=== PATIENT | female | born 1995 | race Caucasian/White ===

== ENCOUNTER 2020-08-10 10:42 | Inpatient (IN) | payer BC ==
[2020-08-12] MEDS ORDERED: Misoprostol 400 MCG (4 X 100 MCG TAB) RECTAL PRN (00:19)
[2020-08-12] MEDS ORDERED: Sodium Chloride 0.9% 10 ML Syringe FLUSH PRN (00:19)
[2020-08-12] MEDS ORDERED: Ondansetron 4 MG/2 ML SDV IVPUSH PRN (00:19)
[2020-08-12] MEDS ORDERED: fentaNYL 100 MCG/2 ML SDV IVPUSH PRN (00:19)
[2020-08-12] MEDS ORDERED: Butorphanol 2 MG/ML SDV IVPUSH PRN ×2 (00:19)
[2020-08-12] MEDS ORDERED: Lactated Ringers 1,000 ML IV ONE (00:19)
[2020-08-12] MEDS ORDERED: Carboprost Tromethamine 250 MCG/1 ML Amp IM PRN (00:19)
[2020-08-12] MEDS ORDERED: Tranexamic Acid 1,000 MG in Sodium Chloride 0.9% 100 ML IV PRN (00:19)
[2020-08-12] MEDS ORDERED: Lidocaine 1% 30 ML SDV INJECT PRN (00:19)
[2020-08-12] MEDS ORDERED: Methylergonovine 0.2 MG/1 ML Amp IM PRN (00:19)
--- NOTE | 2020-08-12 00:27 | PCM.LDHP ---
L&D History of Present Illness - General Date of Service: 08/12/20 Admit Problem/Dx: Patient Status Order with Admit Dx/Problem 08/12/20 00:20 Patient Status [ADT] Routine Admission Diagnosis/Problem Admission Diagnosis/Problem care Source of Information: Patient History Limitations: Reports: No Limitations - History of Present Illness Introduction:: 25-year-old at 40w2d presents to L&D for IOL secondary to postdates and residing >1 hour away from the hospital. Patient has been feeling well. Rare Tommie-Aviles contraction. Baby has been active. No vaginal bleeding or leaking of fluid. No new headache or vision changes. has been uncomplicated. - Related Data Allergies/Adverse Reactions: Allergies Allergy/AdvReac Type Severity Reaction Status Date / Time No Known Allergies Allergy Verified 08/12/20 05:51 Past Medical History - Past Surgical History HEENT Surgical History: Reports: Adenoidectomy, Myringotomy w Tube(s), Tonsillectomy Social & Family History - Family History Endocrine/Metabolic: Reports: Diabetes, type II (Mother) Oncologic: Reports: Cervix (Mother) - Living Situation & Occupation Living situation: Reports: Occupation: Employed H&P Review of Systems - Review of Systems: Review Of Systems: See Below General: Reports: No Symptoms HEENT: Reports: No Symptoms Pulmonary: Reports: No Symptoms Cardiovascular: Reports: No Symptoms Gastrointestinal: Reports: No Symptoms Genitourinary: Reports: No Symptoms Musculoskeletal: Reports: No Symptoms L&D Exam - Exam Exam: See Below - OB Specific Contraction Intensity: Irritability Movement: Active Heart Tones: Present Heart Tones per Min: 135 Heart Rate (FHR) Variability: Moderate (6-25 bmp) Presentation: Vertex - Whitten Score Whitten Score Cervix Position: Posterior Whitten Score Consistency: Soft Whitten Score Effacement: 51-70% Whitten Score Dilation: 1-2 cm Whitten Score 's Station: -2 Whitten Score Total: 6 - Exam General: Alert, Oriented HEENT: Conjunctiva Clear, Mucosa Moist & Bressler, Posterior Pharynx Clear Lungs: Clear to Auscultation, Normal Respiratory Effort Cardiovascular: Regular Rate, Regular Rhythm Genitourinary: Normal external exam Back Exam: Normal Inspection Extremities: Non-Tender, No Pedal Edema Skin: Warm, Dry, Intact - Patient Data Result Diagrams: 08/12/20 00:34 - Problem List (1) care in third trimester SNOMED Code(s): 795134384, 40326102, 38320756, 766056520, 294453855 ICD Code: Z34.93 - ENCNTR FOR SUPRVSN OF NORMAL PREG, UNSP, THIRD TRIMESTER Status: Acute Current Visit: Yes (2) Anemia affecting in third trimester SNOMED Code(s): 42014818, 53866011 ICD Code: O99.013 - ANEMIA COMPLICATING , THIRD TRIMESTER Status: Acute Current Visit: Yes Problem List Initiated/Reviewed/Updated: Yes Orders Last 24hrs: Active Orders 24 hr Category Date Time Status Patient Status [ADT] Routine ADT 08/12/20 00:20 Ordered Communication Order [RC] ASDIRECTED Care 08/12/20 00:20 Ordered Communication Order [RC] ASDIRECTED Care 08/12/20 00:24 Ordered Communication Order [RC] ASDIRECTED Care 08/12/20 00:24 Ordered Communication Order [RC] ASDIRECTED Care 08/12/20 00:24 Ordered Communication Order [RC] ASDIRECTED Care 08/12/20 00:24 Ordered Heart Tones [RC] PER UNIT ROUTINE Care 08/12/20 00:20 Ordered Monitoring [RC] PER UNIT ROUTINE Care 08/12/20 00:24 Ordered Nitrous Oxide Delivery [RC] ASDIRECTED Care 08/12/20 00:23 Ordered Notify Provider Vital Signs OB [RC] ASDIRECTED Care 08/12/20 00:20 Ordered Notify Provider [RC] PRN Care 08/12/20 00:20 Ordered Notify Provider [RC] PRN Care 08/12/20 00:24 Ordered Notify Provider [RC] PRN Care 08/12/20 00:24 Ordered Notify Provider [RC] STAT Care 08/12/20 00:24 Ordered OB Discontinue Nitrous Oxide [RC] ASDIRECTED Care 08/12/20 00:23 Ordered Pump Management, Intrathecal [RC] ASDIRECTED Care 08/12/20 00:19 Ordered Up ad Fani [RC] ASDIRECTED Care 08/12/20 00:20 Ordered Vaginal Exam [RC] PRN Care 08/12/20 00:24 Ordered Vital Signs [RC] PER UNIT ROUTINE Care 08/12/20 00:20 Ordered Regular Diet [DIET] Diet 08/12/20 Breakfast Ordered CBC W/O DIFF,HEMOGRAM [HEME] Routine Lab 08/12/20 00:20 Ordered CORONAVIRUS COVID-19 SARAH [MOLEC] Stat Lab 08/12/20 00:20 Ordered Acetaminophen [TylenoL] Med 08/12/20 00:19 Ordered 650 mg PO Q4H PRN Butorphanol [Stadol] Med 08/12/20 00:19 Ordered 0.5 mg IVPUSH Q3H PRN Butorphanol [Stadol] Med 08/12/20 00:19 Ordered 1 mg IVPUSH Q3H PRN Carboprost Tromethamine [Hemabate DS] Med 08/12/20 00:19 Ordered 250 mcg IM ASDIRECTED PRN Lactated Ringers @ 125 MLS/HR(1000ml) Med 08/12/20 00:30 Ordered Lactated Ringers [Ringers, Lactated] 1,000 ml IV ASDIRECTED Lactated Ringers [Ringers, Lactated] 1,000 ml Med 08/12/20 00:19 Ordered IV BOLUS Lidocaine 1% [Xylocaine-MPF 1%] Med 08/12/20 00:19 Ordered 30 ml INJECT ASDIRECTED PRN Methylergonovine [Methergine] Med 08/12/20 00:19 Ordered 0.2 mg IM ASDIRECTED PRN Ondansetron [Zofran] Med 08/12/20 00:19 Ordered 4 mg IVPUSH Q4H PRN Oxytocin 30 Units in NS @ 2 MUNITS/MIN(500ml) Med 08/12/20 00:30 Ordered Oxytocin/Normal Saline [Pitocin in NS 30 UNIT/500 ML] 30 unit in 500 ml IV TITRATE Sodium Chloride 0.9% [Saline Flush] Med 08/12/20 00:19 Ordered 10 ml FLUSH ASDIRECTED PRN Tranexamic Acid [Cyklokapron] 1,000 mg Med 08/12/20 00:19 Ordered Sodium Chloride 0.9% [Normal Saline] 100 ml IV ONETIME fentaNYL [Sublimaze] Med 08/12/20 00:19 Ordered 100 mcg IVPUSH Q1H PRN miSOPROStoL [Cytotec] Med 08/12/20 00:24 Ordered 25 mcg VAG Q4H PRN miSOPROStoL [Cytotec] Med 08/12/20 00:19 Ordered 800 mcg RECTAL ASDIRECTED PRN Saline Lock Insert [OM.PC] Routine Oth 08/12/20 00:20 Ordered Resuscitation Status Routine Resus Stat 08/12/20 00:19 Ordered Medication Orders Acetaminophen (Tylenol) 650 mg PO Q4H PRN PRN Reason: Pain (Mild 1-3) and fever Butorphanol Tartrate (Stadol) 0.5 mg IVPUSH Q3H PRN PRN Reason: Pain Butorphanol Tartrate (Stadol) 1 mg IVPUSH Q3H PRN PRN Reason: Pain Carboprost Tromethamine (Hemabate Ds) 250 mcg IM ASDIRECTED PRN PRN Reason: HEMORRHAGE Fentanyl (Sublimaze) 100 mcg IVPUSH Q1H PRN PRN Reason: Pain (moderate 4-6) Tranexamic Acid 1,000 mg/ (Sodium Chloride) 110 mls @ 660 mls/hr IV ONETIME PRN PRN Reason: Bleeding Lactated Ringer's (Ringers, Lactated) 1,000 mls @ 999 mls/hr IV BOLUS ONE Stop: 08/12/20 01:19 Lactated Ringer's (Ringers, Lactated) 1,000 mls @ 125 mls/hr IV ASDIRECTED COLLEEN Oxytocin/Sodium Chloride (Pitocin In Ns 30 Unit/500 Ml) 30 unit in 500 mls @ 2 mls/hr IV TITRATE COLLEEN; Protocol Lidocaine HCl (Xylocaine-Mpf 1%) 30 ml INJECT ASDIRECTED PRN PRN Reason: Perineal Repair Methylergonovine Maleate (Methergine) 0.2 mg IM ASDIRECTED PRN PRN Reason: Hemorrhage Misoprostol (Cytotec) 800 mcg RECTAL ASDIRECTED PRN PRN Reason: Hemorrhage Misoprostol (Cytotec) 25 mcg VAG Q4H PRN PRN Reason: cervical ripening Ondansetron HCl (Zofran) 4 mg IVPUSH Q4H PRN PRN Reason: Nausea/Vomiting Sodium Chloride (Saline Flush) 10 ml FLUSH ASDIRECTED PRN PRN Reason: Keep Vein Open Assessment/Plan Comment:: 25-year-ol at 40w2d presents to L&D for elective IOL postdates 1. Initiate routine intrapartum orders 2. Cytotec placed vaginally 3. Will reassess in 4 hours and determine further management at that time. 4. Patient does not plan on intrathecal but is open to pain management options 5. Expectant management. Anticipate Dorita oMoney MD
[2020-08-12] MEDS: Misoprostol 25 MCG (1/4 of 100 MCG) Tab VAG PRN ×2 (01:24→05:50)
[2020-08-12] MEDS: Lactated Ringers 1,000 ML IV SCH ×2 (10:52→12:30)
[2020-08-12] MEDS ORDERED: Nalbuphine 10 MG/1 ML Vial IM PRN (11:36)
[2020-08-12] MEDS: Oxytocin/Normal Saline 30 UNIT/500 ML BAG IV SCH ×2 (13:57→16:49)
[2020-08-12] MEDS ORDERED: Benzocaine/Menthol 20%-0.5% Spray 56 GM Canister TOP ONE (14:02)
[2020-08-12] MEDS: Ibuprofen 800 MG Tab PO PRN (14:51)
[2020-08-12] MEDS ORDERED: Benzocaine/Menthol 20%-0.5% Spray 56 GM Canister TOP PRN (15:14)
--- NOTE | 2020-08-12 17:33 | PCM.DEL ---
L & D Note - General Info Date of Service: 08/12/20 Mother's Due Date: 08/10/20 - Delivery Note Labor: Augmented by ARM Cervical Ripening Method: Misoprostil Delivery Outcome: Livebirth Delivery Method: Spontaneous Vaginal Delivery-Single Presentation: Vertex Nuchal Cord: None Anesthesia Type: Local, Nitrous Oxide Anesthetic: Lidocaine (Xylocaine) 1% Plain Local Anesthetic Volume: Other (10) Amniotic Fluid Description: Clear Episiotomy Type: None Laceration: Labial (Left) Suture type: Vicryl Suture size: 4-0 Placenta: Intact, Spontaneous Cord: 3 Vessels Estimated Blood Loss: 400 : Bulb Syringe, Stimulated, Warmed Score 1 min: 8 Score 5 min: 9 Delivery Comments (Free Text/Narrative):: 25-year-old presented to L&D at 0000 for elective IOL at 40w2d. Cervix was noted to be 2/75/-2. She received 2 doses of Cytotec for cervical ripening. At 900, patient was diana every 3-4 minutes and was mildly uncomfortable with contractions. Cervix was assessed and noted to be 3/90/0. AROM was performed for a moderate amount of clear fluid. Patient received a dose of fentanyl around 1130 and used nitrous oxide for pain management. She rapidly progressed to complete dilation at 1315. Patient pushed for 40 minutes and delivered a viable female at 1351 with Apgars of 8 and 9 at 1 and 5 minutes respe ctively. Baby was placed on the patient's abdomen. Cord was clamped x2 and cut by patient's . Cord blood was collected. The placenta delivered 5 minutes later and was noted to be intact. Pitocin was initiated, and the uterus was noted to be firm. A complex left labial laceration with moderate bleeding was noted. This was repaired with 4-0 Vicryl using running sutures. Perineum was assessed and noted to be intact. Bleeding was noted to be appropriate. Patient tolerated the procedure well, and there were no immediate complications. Induction Criteria - Whitten Score Whitten Score Dilation: 1-2 cm Whitten Score Effacement: 60-70% Whitten Score 's Station: -2 Whitten Score Consistency: Soft Whitten Score Cervix Position: Posterior Whitten Score Total: 6 Whitten Score Presenting Part: Reports: Cephalic - Induction Gestational Age >/= 39 wks: Yes Estimated Pelvis: Reports: Adequate Reassuring Monitoring Strip: Yes Absence of Tachy Systole: Yes - General Info Date of Service: 08/12/20 - Patient Data Vitals - Most Recent: Last Vital Signs Temp 37.2 C 08/12/20 16:30 Pulse 93 08/12/20 17:00 Resp 18 08/12/20 07:10 BP 123/72 08/12/20 17:00 Pulse Ox Weight - Most Recent: 74.843 kg Lab Results Last 24 Hours: Laboratory Results - last 24 hr 08/12/20 08/12/20 Range/Units 00:20 00:34 WBC 11.2 H (5.0-10.0) 10^3/uL RBC 3.62 L (4.2-5.4) 10^6/uL Hgb 11.7 L (12.0-16.0) g/dL Hct 34.1 L (37.0-47.0) % MCV 94.2 (80-100) fL MCH 32.3 (27.0-34.0) pg MCHC 34.3 (33.0-35.0) g/dL Plt Count 211 (150-450) 10^3/uL SARS-CoV-2 RNA (SARAH) Negative (NEGATIVE) Med Orders - Current: Current Medications Acetaminophen (Tylenol) 650 mg PO Q4H PRN PRN Reason: Pain (Mild 1-3) and fever Benzocaine/Menthol (Dermoplast Pain Relief Marshall) 1 gm TOP ASDIRECTED PRN PRN Reason: Pain Butorphanol Tartrate (Stadol) 0.5 mg IVPUSH Q3H PRN PRN Reason: Pain Butorphanol Tartrate (Stadol) 1 mg IVPUSH Q3H PRN PRN Reason: Pain Carboprost Tromethamine (Hemabate Ds) 250 mcg IM ASDIRECTED PRN PRN Reason: HEMORRHAGE Fentanyl (Sublimaze) 100 mcg IVPUSH Q1H PRN PRN Reason: Pain (moderate 4-6) Last Admin: 08/12/20 11:36 Dose: 100 mcg Documented by: Tranexamic Acid 1,000 mg/ (Sodium Chloride) 110 mls @ 660 mls/hr IV ONETIME PRN PRN Reason: Bleeding Lactated Ringer's (Ringers, Lactated) 1,000 mls @ 125 mls/hr IV ASDIRECTED COLLEEN Last Admin: 08/12/20 12:30 Dose: 125 mls/hr Documented by: Oxytocin/Sodium Chloride (Pitocin In Ns 30 Unit/500 Ml) 30 unit in 500 mls @ 2 mls/hr IV TITRATE COLLEEN; Protocol Last Admin: 08/12/20 16:49 Dose: 125 munits/min, 125 mls/hr Documented by: Ibuprofen (Motrin) 800 mg PO Q8H PRN PRN Reason: Pain (moderate 4-6) Last Admin: 08/12/20 14:51 Dose: 800 mg Documented by: Lidocaine HCl (Xylocaine-Mpf 1%) 30 ml INJECT ASDIRECTED PRN PRN Reason: Perineal Repair Last Admin: 08/12/20 14:06 Dose: 30 ml Documented by: Methylergonovine Maleate (Methergine) 0.2 mg IM ASDIRECTED PRN PRN Reason: Hemorrhage Misoprostol (Cytotec) 800 mcg RECTAL ASDIRECTED PRN PRN Reason: Hemorrhage Misoprostol (Cytotec) 25 mcg VAG Q4H PRN PRN Reason: cervical ripening Last Admin: 08/12/20 05:50 Dose: 25 mcg Documented by: Nalbuphine HCl (Nubain) 20 mg IM ONETIME PRN PRN Reason: Pain (moderate 4-6) Ondansetron HCl (Zofran) 4 mg IVPUSH Q4H PRN PRN Reason: Nausea/Vomiting Sodium Chloride (Saline Flush) 10 ml FLUSH ASDIRECTED PRN PRN Reason: Keep Vein Open Discontinued Medications Benzocaine/Menthol (Dermoplast Pain Relief Marshall) Confirm Administered Dose 56 gm TOP .STK-MED ONE Stop: 08/12/20 14:03 Lactated Ringer's (Ringers, Lactated) 1,000 mls @ 999 mls/hr IV BOLUS ONE Stop: 08/12/20 01:19 - Problem List & Annotations (1) care in third trimester SNOMED Code(s): 978713716, 46103153, 33853736, 095161379, 635653521 Code(s): Z34.93 - ENCNTR FOR SUPRVSN OF NORMAL PREG, UNSP, THIRD TRIMESTER Status: Acute Current Visit: Yes (2) Anemia affecting in third trimester SNOMED Code(s): 12083808, 01256784 Code(s): O99.013 - ANEMIA COMPLICATING , THIRD TRIMESTER Status: Acute Current Visit: Yes (3) (normal spontaneous vaginal delivery) SNOMED Code(s): 81295121, 901493605 Code(s): O80 - ENCOUNTER FOR FULL-TERM UNCOMPLICATED DELIVERY Status: Acute Current Visit: Yes (4) Obstetric labial laceration, delivered, current hospitalization SNOMED Code(s): 128448161, 029717712, 523382728 Code(s): O70.0 - FIRST DEGREE PERINEAL LACERATION DURING DELIVERY Status: Acute Current Visit: Yes Annotation/Comment:: Bilateral--left requiring repair, right hemostatic and no repair needed - Problem List Review Problem List Initiated/Reviewed/Updated: Yes - My Orders Last 24 Hours: My Active Orders 08/12/20 00:19 Acetaminophen [TylenoL] 650 mg PO Q4H PRN Butorphanol [Stadol] 0.5 mg IVPUSH Q3H PRN Butorphanol [Stadol] 1 mg IVPUSH Q3H PRN Carboprost Tromethamine [Hemabate DS] 250 mcg IM ASDIRECTED PRN Lidocaine 1% [Xylocaine-MPF 1%] 30 ml INJECT ASDIRECTED PRN Methylergonovine [Methergine] 0.2 mg IM ASDIRECTED PRN Ondansetron [Zofran] 4 mg IVPUSH Q4H PRN Sodium Chloride 0.9% [Saline Flush] 10 ml FLUSH ASDIRECTED PRN Tranexamic Acid [Cyklokapron] 1,000 mg Sodium Chloride 0.9% [Normal Saline] 100 ml IV ONETIME fentaNYL [Sublimaze] 100 mcg IVPUSH Q1H PRN miSOPROStoL [Cytotec] 800 mcg RECTAL ASDIRECTED PRN Resuscitation Status Routine 08/12/20 00:20 Patient Status [ADT] Routine Notify Provider Vital Signs OB [RC] ASDIRECTED Up ad Fani [RC] ASDIRECTED Vital Signs [RC] 08,20 Saline Lock Insert [OM.PC] Routine 08/12/20 00:24 miSOPROStoL [Cytotec] 25 mcg VAG Q4H PRN 08/12/20 00:30 Lactated Ringers [Ringers, Lactated] 1,000 ml IV ASDIRECTED Oxytocin/Normal Saline [Pitocin in NS 30 UNIT/500 ML] 30 unit in 500 ml IV TITRATE 08/12/20 Breakfast Regular Diet [DIET] 08/12/20 11:36 Nalbuphine [Nubain] 20 mg IM ONETIME PRN 08/12/20 14:29 Ibuprofen [Motrin] 800 mg PO Q8H PRN 08/12/20 15:14 Benzocaine/Menthol [Dermoplast Pain Relief Marshall] 1 gm TOP ASDIRECTED PRN - Assessment Assessment:: 25-year-old, now , status post at 40w2d - Plan Plan:: 1. Initiate routine cares 2. Repeat CBC tomorrow morning 3. Patient plans to breastfeed 4. Anticipate discharge 08/14/2020. Dr. Ndiaye to assume care tomorrow morning for the weekend. Dorita Mooney MD
[2020-08-12] MEDS ORDERED: Oxytocin 10 Units/1 ML SDV IM PRN (17:35)
[2020-08-12] MEDS ORDERED: Simethicone 80 MG Tab.Chew PO PRN (17:35)
[2020-08-12] MEDS: Docusate Sodium 100 MG Cap PO PRN (20:47)
[2020-08-12] MEDS: Acetaminophen 325 MG Tab PO PRN (20:47)
[2020-08-13] MEDS: Ibuprofen 800 MG Tab PO PRN ×2 (04:05→16:11)
[2020-08-13] MEDS: Docusate Sodium 100 MG Cap PO PRN ×2 (07:57→20:26)
[2020-08-13] MEDS: Prenatal Multivitamin with Calcium/Folic Acid/Iron Tab PO SCH (08:00)
--- NOTE | 2020-08-13 12:58 | PN ---
DATE: 08/13/2020 day #1 status post spontaneous vaginal delivery. SUBJECTIVE: The patient is tolerating p.o., was ambulating, urinating, passing flatus. OBJECTIVE: Vital Signs: Temperature 98.9, heart rate 100, blood pressure 125/59, respiratory rate 18. Lungs: Clear to auscultation bilaterally. Heart: S1, S2. Regular rate and rhythm. Abdomen: Firm uterus around the umbilicus. Extremities: Trace pedal edema. LABORATORY DATA: White cell count 13.9, hemoglobin 9.8 compared to predelivery hemoglobin of 11.7, platelets 204. ASSESSMENT AND PLAN: 1. day #1 status post spontaneous vaginal delivery with left labial repair per Dr. Mooney. Please see her notes for further details. We will continue to follow clinically and closely at this time. 2. Anemia of acute blood loss. The patient denies any overt symptoms of anemia. We will follow closely. She states her bleeding has significantly decreased and possible discharge tomorrow was discussed. We will continue to follow clinically and closely at this point in time, however. [facility] /[id number]
[2020-08-13] MEDS: Acetaminophen 325 MG Tab PO PRN (20:26)
[2020-08-13] MEDS: Ferrous Sulfate 325 MG Tab PO SCH (20:26)
[2020-08-14] MEDS: Docusate Sodium 100 MG Cap PO PRN (08:59)
[2020-08-14] MEDS: Prenatal Multivitamin with Calcium/Folic Acid/Iron Tab PO SCH (08:59)
[2020-08-14] MEDS: Ferrous Sulfate 325 MG Tab PO SCH (08:59)
[2020-08-14] MEDS: Ibuprofen 800 MG Tab PO PRN (09:00)
--- NOTE | 2020-08-14 12:06 | DISCH ---
ADMIT DIAGNOSES: 1. Intrauterine at 40-1/7 weeks. 2. Induction of labor for postdates. 3. Urinary tract infection in the . 4. G1, P0. 5. Group B Streptococcus negative. DISCHARGE DIAGNOSES: 1. Intrauterine at 40-1/7 weeks, delivered. 2. Induction of labor for postdates. 3. Urinary tract infection in the . 4. G1, P0. 5. Group B Streptococcus negative. 6. Left labial laceration, repaired. 7. Anemia, acute blood loss. Hemoglobin dropping from 11.7 to 9.8. HISTORY OF PRESENT ILLNESS: Please see H and P. SUMMARY OF HOSPITAL COURSE: The patient admitted on the above date with above diagnosis. Underwent the above procedures. Please see delivery note and Dr. Mooney's notes for further details. day #1, please see progress note. day #2, date of discharge, the patient was tolerating p.o., was ambulating, urinating, passing flatus. Denied any chest pain, shortness of breath, lightheadedness. Requesting discharge. OBJECTIVE: Vital Signs: Temperature 98.6, heart rate 98, blood pressure 126/77, respiratory rate 18. Lungs: Clear to auscultation bilaterally. Heart: S1, S2. Regular rate and rhythm. Abdomen: Firm uterus around the umbilicus. Extremities: Trace pedal edema. No calf pain. LABORATORY DATA: On 08/13/2020 day after delivery did reveal hemoglobin dropped down to 9.8, platelets stable at 204, and white cell count 13.9. CONDITION ON DISCHARGE COMPARED TO CONDITION ON ADMISSION: Improved. DISCHARGE INSTRUCTIONS: Diet: As tolerated. Activity: No lifting more than 20 pounds. No sit-ups or straining and pelvic rest the next 6 weeks with immediate return to fertility discussed with the patient. Reasons to return or go to the emergency room discussed with the patient in detail including, but not limited to, temperature greater than 100.4, foul- smelling discharge, red or hot breasts, or increased vaginal bleeding. DISCHARGE MEDICATIONS: [id number] ibuprofen for pain, iron sulfate 325 b.i.d. x6 weeks. FOLLOWUP: Six [address] Mooney. Followup with baby has been scheduled this next week. The mother will be notified in regard to this. I did discuss with them in the interim reason to go to emergency room in regard to her baby. They understand and agree with the above treatment plan. Please see discharge paperwork for further details. [facility] /[id number] MTDD
== END 2020-08-14 12:05 | disposition home or self-care (01) | DRG 560 ==
LOC: EDSTATUS 12:13 → DL.OB 08-12 00:02 → OBSVTOIN 08-12 13:51 → DL.OB 08-12 13:51
PROVIDERS: ADMIT Family Medicine; ATTEND Family Medicine
PROC: 10E0XZZ Delivery of Products of Conception, External Approach (ICD-10-PCS; principal; 2020-08-12)
PROC: 0HQ9XZZ Repair Perineum Skin, External Approach (ICD-10-PCS; 2020-08-12)
PROC: 10907ZC Drainage of Amniotic Fluid, Therapeutic from Products of Conception, Via Natural or Artificial Opening (ICD-10-PCS; 2020-08-12)
PROC: 3E0P7VZ Introduction of Hormone into Female Reproductive, Via Natural or Artificial Opening (ICD-10-PCS; 2020-08-12)
DX: O48.0 Post-term pregnancy (principal); O75.3 Other infection during labor; Z3A.40 40 weeks gestation of pregnancy; Z37.0 Single live birth; O99.02 Anemia complicating childbirth; D62 Acute posthemorrhagic anemia; O70.0 First degree perineal laceration during delivery; Z20.822 Contact with and (suspected) exposure to COVID-19
CPT/HCPCS: 36415; 59025; 59409; 85027; A9270-GY; J2001; J2590; J3010; J7120; U0002